=== PATIENT | male | born 1985 | race Caucasian/White ===

== ENCOUNTER 2022-05-27 07:38 | Day surgery (SDC) | payer BC ==
[2022-05-27] MEDS ORDERED: Glycopyrrolate 0.2 MG/ML SDV IVPUSH ONE (07:39)
[2022-05-27] MEDS ORDERED: Lactated Ringers 1,000 ML IV SCH (08:00)
[2022-05-27] MEDS ORDERED: Sodium Chloride 0.9% 10 ML Syringe FLUSH PRN (08:00)
[2022-05-27] MEDS ORDERED: Lidocaine 2% 5 ML SDV ONE (08:27)
[2022-05-27] MEDS ORDERED: Midazolam 1 MG/ML 2 ML SDV ONE (08:27)
[2022-05-27] MEDS ORDERED: Propofol 200 MG/20 ML SDV ONE (08:27)
== END 2022-05-27 10:45 | disposition home or self-care (01) ==
LOC: KA.SDS 07:38
PROVIDERS: ATTEND Family Medicine
DX: K29.50 Unspecified chronic gastritis without bleeding (principal); K21.9 Gastro-esophageal reflux disease without esophagitis; Z79.899 Other long term (current) drug therapy; Z88.0 Allergy status to penicillin
CPT/HCPCS: 00731; J2250; J2704; J3490; J7120